=== PATIENT | male | born 1990 | race Caucasian/White ===

== ENCOUNTER 2016-11-29 03:09 | Emergency (ER) | payer OTHER ==
--- NOTE | ~2016-11-29 | CT4 ---
[facility]. [facility] A Service of [facility] RADIOLOGY TEXT RESULTS PATIENT: BRIA ORELLANA LOCATION: SED : [birth year] UNIT #: [id number] AGE: [address]: Jluis Parekh MD SEX: M ORDER DR: [id number] [place] [id number] E MR#: [id number] Acc #: [id number] NAME: BRIA ORELLANA. : 1990 SEX: M STUDY DATE/TIME: 11/29/2016 3:04 UNIT: SED ROOM: STUDY DESCRIPTION: CT Abd and Pelv Wo Cont Attending Physician: Jluis Parekh M.D. Ordering Physician: Jluis Parekh M.D. Primary Care Physician: No Primary Care Physician MEDICAL IMAGING REPORT This report is preliminary unless electronic signature is present. EXAM CT abdomen and pelvis without contrast 11/29/2016 HISTORY 26-year-old male with left flank pain beginning this morning. Dysuria. Hematuria. COMPARISON CT abdomen and pelvis 07/11/2016. TECHNIQUE Helical scan performed through the abdomen and pelvis without oral or IV contrast. Coronal and sagittal reformatted images. This CT exam was performed with one or more of the following radiation dose reduction techniques: automatic exposure control, adjustment of mA and/or kV according to patient size, and iterative reconstruction. FINDINGS Visualized lung bases are unremarkable. The liver, spleen, pancreas, gallbladder, and both adrenal glands within normal limits. There are multiple punctate bilateral nonobstructing intrarenal calculi. No obstructing ureteral stones or hydronephrosis. Abdominal aorta normal in course and caliber. Small bowel is unremarkable without obstruction. Appendix normal. Colon unremarkable. Moderate stool burden. No free fluid or free air. The urinary bladder and prostate gland are unremarkable. No free pelvic fluid. No acute bony abnormality. IMPRESSION 1. Multiple punctate bilateral nonobstructing intrarenal calculi. No obstructing ureteral stones or hydronephrosis. 2. Normal appendix. [facility] A Service of [facility] RADIOLOGY TEXT RESULTS PATIENT: BRIA ORELLANA [place] [facility] [place] [birth year] [place]IT #: [id number] AGE: [address]: Jluis Parekh MD SEX: M ORDER DR: 3. Moderate stool burden. Dictated by... Noam Salas M.D. THIS IS AN ELECTRONICALLY VERIFIED REPORT Noam Salas M.D. at 11/30/2016 4:38 PM ADEEL/michela TD: 11/29/2016 16:57 JOB #: [id number] MEDICAL IMAGING REPORT Page 1 of 1
[2016-11-29 03:02] LABS: BASOPHIL# 0.1 X10e3 (0-0.3); EOSINOPHIL# 0.5 X10e3 (0-0.7); EOSINOPHIL% 6.7 % (0.0-7.0); HEMATOCRIT 46.6 % (38.0-50.0); HEMOGLOBIN 15.8 gm/dL (13.0-16.0); LYMPHOCYTE# 3.2 X10e3 (1.0-3.5); LYMPHOCYTE% 40.8 % (17.0-45.0); MEAN CELL VOLUME 92.1 FL (83-96); MEAN CORPUSCULAR HEMOGLOBIN 31.3 PG (28-34); MEAN PLATELET VOLUME 8.4 FL (6.5-11.5); MONOCYTE# 0.7 X10e3 (0-1.0); MONOCYTE% 8.9 % (3.0-12.0); NEUTROPHIL# 3.3 X10e3 (1.5-7.1); NEUTROPHIL% 42.6 % (40-75); PLATELET COUNT 215 X10e3 (140-420); RED BLOOD COUNT 5.06 X10e (3.90-5.60); WHITE BLOOD COUNT 7.8 X10e3 (4.0-10.5)
[2016-11-29 03:09] LABS: DIFF IND NO
[~2016-11-29 03:09] MED LIST: XANAX XR2 MG
[2016-11-29 03:10] LABS: URINE SOURCE CLEAN CATCH
[2016-11-29 03:10] LABS: ALBUMIN SERUM 4.2 g/dL (3.5-5.0); BILIRUBIN,TOTAL 0.4 mg/dL (0.2-2.0); BUN/CREATININE RATIO 13.33; CREATININE SERUM 0.9 mg/dL (0.6-1.4); GLOM FILT RATE Estimated 115.8 mL/min (>60); POTASSIUM 3.9 mmol/L (3.5-5.1); PROTEIN TOTAL SERUM 7.3 g/dL (6.0-8.3)
[2016-11-29 03:12] LABS: URINE APPEARANCE CLEAR; URINE BILIRUBIN NEG (NEG); URINE BLOOD 3+ (NEG); URINE COLOR DK YELLOW; URINE GLUCOSE NEG (NORM); URINE KETONE NEG (NEG); URINE LEUKOCYTE ESTERASE NEG (NEG); URINE NITRATE NEG (NEG); URINE PH 6.5 (5-8); URINE PROTEIN NEG (NEG); URINE SPECIFIC GRAVITY 1.025 (1.003-1.035)
[2016-11-29 03:16] LABS: MICRO INDICATED? YES
[2016-11-29 03:18] LABS: URINE RBC INNUM /[HPF] (0-2)
[2016-11-29 03:19] LABS: CULTURE INDICATED? NO; URINE BACTERIA NEG (NEG); URINE WBC 0-2 /[HPF] (0-5)
== END 2016-11-29 03:59 | disposition home or self-care (01) ==
LOC: SED 03:09
DX: R10.9 Unspecified abdominal pain (principal); F41.9 Anxiety disorder, unspecified; F17.200 Nicotine dependence, unspecified, uncomplicated; Z87.442 Personal history of urinary calculi
CPT/HCPCS: 74176; 80053; 81003; 85025; 99284

== ENCOUNTER 2017-05-10 10:04 | Emergency (ER) | payer SELFPAY ==
--- NOTE | ~2017-05-10 | CT4 ---
[facility] A Service of [facility] RADIOLOGY TEXT RESULTS PATIENT: BRIA ORELLANA LOCATION: SED : [birth year] UNIT #: [id number] AGE: [address]: Mauricio Carlisle MD SEX: M ORDER DR: [id number] [place] [id number] E MR#: [id number] Acc #: [id number] NAME: BRIA ORELLANA. : 1990 SEX: M STUDY DATE/TIME: 05/10/2017 11:56 UNIT: SED ROOM: STUDY DESCRIPTION: CT Abd and Pelv Wo Cont Attending Physician: Mauricio Carlisle M.D. Ordering Physician: Mauricio Carlisle M.D. Primary Care Physician: No Primary Care Physician MEDICAL IMAGING REPORT This report is preliminary unless electronic signature is present. EXAM CT abdomen and pelvis. INDICATIONS Left lower abdomen, left flank pain 6 hours. Blood in urine. History of stones. TECHNIQUE CT abdomen and pelvis performed without administration of oral or IV contrast. This CT exam was performed with one or more of the following radiation dose reduction techniques: Automatic exposure control, adjustment of mA and/or kV according to patient size, and iterative reconstruction. COMPARISON 11/29/16. FINDINGS Bilateral gynecomastia. Correlate with risk factors. Similar appearance on prior study. Heart and pericardium unremarkable in visualized extent. Dependent atelectasis at lung bases. Liver, gallbladder, spleen, pancreas, adrenal glands unremarkable. Punctate nonobstructing calculi in the right kidney. No hydronephrosis. Right ureter unremarkable. Left kidney shows no hydronephrosis. Punctate nonobstructing calculi in the left kidney as well. Left ureter normal. No perinephric inflammatory change and no secondary sign of recent stone passage bilaterally. CT pelvis: No inguinal adenopathy. Urinary bladder unremarkable. No pelvic fluid collection. No pelvic or retroperitoneal adenopathy. Distal esophagus, stomach, small bowel unremarkable. Patient retains normal appendix. Colon shows no acute abnormality. The bony structures show stable mild levoscoliosis lumbar spine. No acute appearing bony [facility] A Service of [facility] RADIOLOGY TEXT RESULTS PATIENT: BRIA ORELLANA [id number] [birth year] UNIT #: [id number] AGE: [address]: Mauricio Carlisle MD SEX: M ORDER DR: abnormality. IMPRESSION 1. No clearly acute abnormality seen in abdomen or pelvis. 2. Punctate nonobstructing intrarenal calculi bilaterally. Kidneys otherwise unremarkable. No secondary signs of recent stone passage. 3. Gallbladder, pancreas, appendix unremarkable. Remainder of alimentary canal unremarkable. 4. Bilateral symmetric gynecomastia. Correlate with risk factors. Dictated by... John Velasquez M.D. THIS IS AN ELECTRONICALLY VERIFIED REPORT John Velasquez M.D. at 05/11/2017 4:57 PM Rafael TD: 05/11/2017 07:08 JOB #: [id number] MEDICAL IMAGING REPORT Page 1 of 1
[2017-05-10] MEDS ORDERED: KLONOPIN1 M1 PO (10:21)
[2017-05-10 10:54] LABS: URINE SOURCE CLEAN CATCH
[2017-05-10 10:56] LABS: URINE APPEARANCE HAZY; URINE BILIRUBIN NEG (NEG); URINE BLOOD 3+ (NEG); URINE COLOR YELLOW; URINE GLUCOSE NEG (NORM); URINE KETONE NEG (NEG); URINE LEUKOCYTE ESTERASE NEG (NEG); URINE NITRATE NEG (NEG); URINE PH 6.5 (5-8); URINE PROTEIN NEG (NEG); URINE SPECIFIC GRAVITY <=1.005 (1.003-1.035); URINE UROBILINOGEN 0.2 MG/DL (NORM)
[2017-05-10 11:07] LABS: MICRO INDICATED? YES
[2017-05-10 11:14] LABS: URINE RBC 100-200 /[HPF] (0-2)
[2017-05-10 11:15] LABS: CULTURE INDICATED? NO; URINE BACTERIA NEG (NEG); URINE SQUAMOUS EPITHELIAL CELL OCCAS /[HPF]; URINE WBC 0-2 /[HPF] (0-5)
[2017-05-10 11:21] LABS: AMPHETAMINE NEG (NEG); BARBITURATES NEG (NEG); BENZODIAZEPINES NEG (NEG); COCAINE NEG (NEG); MARIJUANA POS (NEG); OPIATES NEG (NEG); TRICYCLIC ANTIDEPRESSANTS NEG (NEG); U METHADONE NEG (NEG)
[2017-05-10 11:43] LABS: BASOPHIL# 0.1 X10e3 (0-0.3); EOSINOPHIL# 0.7 X10e3 (0-0.7); EOSINOPHIL% 8.3 % (0.0-7.0); HEMOGLOBIN 14.8 gm/dL (13.0-16.0); LYMPHOCYTE# 2.8 X10e3 (1.0-3.5); MEAN CELL VOLUME 89.7 FL (83-96); MEAN CORPUSCULAR HEMOGLOBIN 30.9 PG (28-34); MEAN CORPUSCULAR HGB CONC 34.5 g/dL (30-36); MEAN PLATELET VOLUME 8.3 FL (6.5-11.5); MONOCYTE# 0.8 X10e3 (0-1.0); MONOCYTE% 9.9 % (3.0-12.0); NEUTROPHIL# 3.6 X10e3 (1.5-7.1); NEUTROPHIL% 45.8 % (40-75); PLATELET COUNT 180 X10e3 (140-420); RED BLOOD COUNT 4.79 X10e (3.90-5.60); RED CELL DISTRIBUTION WIDTH 13.1 % (11.0-15.5); WHITE BLOOD COUNT 7.9 X10e3 (4.0-10.5)
[2017-05-10 11:47] LABS: DIFF IND NO
[2017-05-10 12:05] LABS: BILIRUBIN, DIRECT 0.1 mg/dL (0.0-0.2); BILIRUBIN,INDIRECT 0.5 mg/dL (0.0-0.9); BILIRUBIN,TOTAL 0.6 mg/dL (0.2-2.0); BUN/CREATININE RATIO 17.14; CREATININE SERUM 0.7 mg/dL (0.6-1.4); GLOM FILT RATE Estimated 127.6 mL/min (>60); POTASSIUM 3.2 mmol/L (3.5-5.1); PROTEIN TOTAL SERUM 6.9 g/dL (6.0-8.3)
== END 2017-05-10 13:54 | disposition home or self-care (01) ==
LOC: SED 10:04
PROVIDERS: Emergency Medicine
DX: R31.9 Hematuria, unspecified (principal); R10.9 Unspecified abdominal pain; F41.9 Anxiety disorder, unspecified; F43.10 Post-traumatic stress disorder, unspecified; F17.210 Nicotine dependence, cigarettes, uncomplicated; Z87.442 Personal history of urinary calculi; Z98.890 Other specified postprocedural states; Z88.8 Allergy status to other drugs, medicaments and biological substances
CPT/HCPCS: 36415; 74176; 80048; 80076; 80307; 81003; 82150; 83690; 85025; 96361; 96374; 96375; 99284; J1170; J2405